=== PATIENT | female | born 1970 | race Caucasian/White ===

== ENCOUNTER 2021-01-19 14:19 | Outpatient (CLI) | payer OTHER, SELFPAY ==
--- NOTE | ~2021-01-19 | US_ITS ---
EXAMINATION: US arterial ankle brachial ind DATE: 01/19/2021 14:57 INDICATION: Bilateral leg pain TECHNIQUE: Segmental pressures and plethysmographic and Doppler waveforms of the brachial and lower e xtremity arteries were obtained. COMPARISON: None. FINDINGS: Right and left brachial artery pressures of 148 mm Hg and 130 mm Hg, respectively, are concordant (no rmal difference <= 30 mmHg). The right ankle-brachial index (JELLY) is 0.88 (normal >= 0.9-1.0). The right great toe-brachial index (TBI) is 0.69 (normal >= 0.65). Arterial Doppler waveforms are biphasic. The left JELLY is 0.97. The left TBI is 0.46. Arterial Doppler waveforms are biphasic. IMPRESSION: Minimally depressed right JELLY of 0.88 Abnormally depressed left TBI of 0.46 Reviewed, dictated and finalized at [facility]. Reviewed, dictated and finalized at [facility].
== END 2021-01-19 14:20 | disposition home or self-care (01) ==
PROVIDERS: PCP Internal Medicine; Visit Provider Internal Medicine
DX: M79.604 Pain in right leg (principal); M79.605 Pain in left leg
CPT/HCPCS: 93922